=== PATIENT | male | born 1960 | race African-American/Black ===

== ENCOUNTER 2022-04-17 01:16 | Emergency (ER) | payer MEDICAID, OTHER ==
[~2022-04-17] VITALS: Ht 180.3 cm; Wt 109.0 kg
[2022-04-17 01:16] VITALS: BP 135/87
[2022-04-17 02:39] LABS: Urine Bacteria NONE SEEN /hpf (None Seen); Urine Blood 3+ /uL (Negative); Urine Mucus FEW (None Seen); Urine Specific Gravity 1.016 (1.001-1.035); Urine WBC 279 /hpf (0 - 3)
== END 2022-04-17 05:12 | disposition left against medical advice (07) ==
LOC: ER 01:16
DX: T83.091A Other mechanical complication of indwelling urethral catheter, initial encounter (principal); R31.9 Hematuria, unspecified
CPT/HCPCS: 81001